=== PATIENT | female | born 1960 | race Caucasian/White ===

== ENCOUNTER 2024-01-20 06:01 | Day surgery (SDC) | payer OTHER, SELFPAY ==
[2024-01-11 12:07] VITALS: BMI 35.4
[2024-01-20] VITALS (12 sets, daily range): BP systolic 110–161; BP diastolic 57–114; PULSE 85–111; RESP 10–20; TEMP 36.1–36.9; O2SAT 97–99; BMI 35.4; BMI 36.7
--- NOTE | 2024-01-20 06:00 | DI.RAD.S_ITS ---
PROCEDURE: XR HIP W PEL IF DONE LT 2V INDICATIONS: DERREK TECHNIQUE: 2 view(s) of the left hip acquired. COMPARISON: None. FINDINGS: Bones: Intraoperative images of left hip arthroplasty, with hardware components in expected positions. The hip joint appears congruent. The visualized bony structures appear intact. Soft tissues: Overlying postoperative changes are noted. No suspicious soft tissue densities. IMPRESSION: Expected intraoperative appearance of a left hip arthroplasty. Dictated by: Keeley Álvarez MD, PhD on 01/20/2024 at 12:32 Approved by: Keeley Álvarez MD, PhD on 01/20/2024 at 12:33
[2024-01-20] MEDS: ACETAMINOPHEN 325 MG TABLET 975 MG PO (06:42)
[2024-01-20] MEDS: CELECOXIB 200 MG CAPSULE 400 MG PO (06:43)
[2024-01-20] MEDS: LACTATED RINGERS 1,000 ML 42 ML IV (06:45)
--- NOTE | 2024-01-20 07:34 | PM.PREOP ---
Pre-operative Note Interval Note History & Physical reviewed/Exam performed by Physician: Yes Changes to H&P: No
[2024-01-20] MEDS: CEFAZOLIN 2 GM/100 ML PREMIX 100 ML IV (08:00)
[2024-01-20] MEDS: TRANEXAMIC ACID 1,000 MG VIAL 2000 MG INJ ×2 (08:00→09:29)
--- NOTE | 2024-01-20 08:31 | SUR.OPER ---
Supine on padded [place] table with bilateral legs secured in padded positioning boots and suspended in positioning spars, operative leg in traction per surgeon. Head on one pillow. Arm on non-operative side secured on padded armboard <90 degrees abduction. Arm on operative side padded and resting across chest then secured with tape over sheet. Padded perineal post in place per surgeon.
[2024-01-20] MEDS: ROPIVACAINE/EPI/CLONIDINE/KET 50 ML SYRINGE INJ (08:43)
[2024-01-20] MEDS: TOBRAMYCIN 1.2 GM VIAL INTRA-ARTI (09:11)
[2024-01-20] MEDS: CEFAZOLIN VIAL 1 GM in SODIUM CHLORIDE 0.9% 100 ML IV (09:12)
--- NOTE | 2024-01-20 10:20 | DI.RAD.S_ITS ---
PROCEDURE: XR HIP W PEL IF DONE LT 2V INDICATIONS: LEFT HIP ANTERIOR TOTAL TECHNIQUE: AP pelvis and lateral view of the hip acquired. COMPARISON: [facility], [facility], XR HIP W PEL IF DONE LT 2V, 01/20/2024, 8:40. FINDINGS: Bones: Patient is status post left hip arthroplasty, with hardware components in expected positions. The hip joint appears congruent. The visualized bony structures appear intact. Soft tissues: Overlying postoperative changes are noted. No suspicious soft tissue densities. IMPRESSION: Expected post-operative appearance of a hip arthroplasty. Dictated by: Aiden Otero M.D. on 01/20/2024 at 16:17 Approved by: Aiden Otero M.D. on 01/20/2024 at 16:17
--- NOTE | 2024-01-20 10:27 | PM.OP.1 ---
Operative Date/Time/Diagnoses Date of procedure: 01/20/24 Pre-op diagnosis: Left hip osteoarthritis Post-op diagnosis: same Procedure & Clinicians Procedure: Left total hip arthroplasty Same procedure as scheduled: Yes Surgeon: Luis Paz Caster Operator: Yokasta Barnett Anesthesia Type: Spinal, Sedation and Local Operative Notes Estimated Blood Loss (mL): 250 Procedure in detail: Left Uncemented Direct Anterior Depuy Total Hip Arthroplasty Placement of biodegradable antibiotic delivery device in the left hip Implants: [place] Gription size 54 cup?with a 40 mm screw Actis femoral stem size 4 HO? 36 mm +5 ceramic femoral head? Procedure Summary: This 63-year-old female patient had a history of a contralateral total hip arthroplasty which was complicated by wound infection. Prior to proceeding with this surgery I checked inflammatory markers to ensure there was no persistent infection and they were normal. I utilized dissolvable calcium sulfate pellets for placement of depot antibiotics locally adjacent to the implants. This was loaded with cefazolin and gentamicin given the patient's vancomycin allergy. I also utilized an incisional wound VAC and will have the patient on prophylactic cefadroxil postoperatively after discharge. Intraoperatively I initially placed the cup with no screws but it loosened during manipulation for liner insertion so I did place a single screw for reinforcement before impacting down the liner. She received a size 4 stem. I had templated her for a size 5 however she had a very narrow femoral canal and achieved a anterior to posterior fit significantly earlier than a medial to lateral fit given the triple taper design of the implant that I used. I therefore implanted those final components once stability was achieved Procedure in Detail: This patient was seen preoperatively and evaluated for hip pain which was refractory to numerous nonoperative treatment modalities. Their hip pain correlated with radiographic changes demonstrating significant degeneration in the hip joint. The risks and benefits of continued nonoperative management versus operative management were discussed at length and all of the patient?s questions were answered. Additional educational materials providing further details beyond our discussion in clinic were provided via a publicly available patient education video which included the incidence of medical complications associated with total hip arthroplasty, reasons for revision following total hip arthroplasty, and patient satisfaction rates following total hip arthroplasty. That video can be accessed at [email or web address] . With this understanding of the risks inherent to the procedure, the patient elected to move forward with operative management. Following preoperative optimization, the patient was scheduled for surgery. The patient was met in the preoperative holding area the day of the procedure and all questions were answered. The patient?s nares were swabbed with betadine in order to decolonize them from MRSA. Informed consent was signed and the left limb was marked with indelible ink.? The patient was brought back to the operating room where anesthesia was induced. The patient was transferred to the [place] table and all bony prominences were padded. The operative site was prepped and draped in the usual sterile fashion. Prior to incision, tranexamic acid and cefazolin were administered. Operative templating images were displayed demonstrating the anticipated implant sizes and correct operative extremity. A timeout procedure was performed verifying the patient?s identity, medical comorbidities, allergies, relevant medications, anesthesia type and the surgical plan. All present were in agreement. The assistance of a physician academic affairs assistant was required for positioning, room setup, soft tissue retraction and wound closure. Without this assistance, the procedure would have been significantly more challenging and time consuming.?? A direct anterior approach to the hip was utilized. This was performed with a longitudinal incision through a Heuter interval. The incision was planned 2 cm distal and 2 cm lateral to the ASIS extending towards the lateral patella, in line with the muscle body of the TFL. Following incision, the subcutaneous tissue was dissected while taking care to avoid injury to the lateral femoral cutaneous nerve. The fascia overlying the TFL was identified by dissecting off the overlying fat and identifying perforating vessels to the TFL. The TFL fascia was incised and dissected away from the medial border of the TFL. A cobra retractor was placed over the superior femoral neck between the abductors and the hip capsule and used to reflect the TFL laterally. A Elliott self-retainer was then placed in the distal aspect of the wound between the TFL and the rectus femoris. This was tensioned to open up the direct anterior interval and the lateral circumflex vessels were identified and coagulated using electrocautery. The floor of the TFL fascia was incised, exposing the pericapsular fat overlying the hip capsule. A second cobra retractor was placed on the inferior femoral neck. A double-bent soft tissue retractor was placed on the anterior wall of the acetabulum and used to tension the reflected head of rectus femoris, which was then released in order to limit soft tissue tension. A capsulotomy was made in the midline of the anterior hip capsule in line with the femoral neck ending at the vastus tubercle. The double-bent retractor was removed in order to limit the amount of time that a soft tissue retractor remained on the anterior wall and protect the femoral nerve. Tag stitches were placed in the superior and inferior leaflets of the hip capsule. An Patel soft tissue retractor was introduced over the tag stitches and tensioned in the interval between the rectus femoris and the TFL in order to retract and protect those muscles. The cobra retractors were replaced intracapsularly, with one over the superior neck in the pocket created by the base of the greater trochanter and the other on the femoral head. The capsulotomy was extended laterally to the base of the greater trochanter and medially to the lesser trochanter. This required externally rotating the hip. Once the lesser trochanter had been identified, a neck cut was planned according to measurements from preoperative templating. A ruler was cut at the length measured between the superior aspect of the lesser trochanter and the collar of the prosthesis. This line was extended towards the inferior aspect of the lateral cobra retractor to plan a cut which would leave minimal residual femoral neck laterally. The neck was cut at 60 degrees of external rotation along that line. A second cut was performed to remove a large napkin ring and facilitate head extraction. The napkin ring cut and femoral head were removed.?? A broad anterior wall retractor was placed between the labrum and the anterior capsule so that the anterior capsule would prevent capturing and pinching the femoral nerve anteriorly. An additional retractor was placed on the posterior wall. External rotation and traction were applied through the [place] table so that the cut surface of the femoral neck would not restrict access to the acetabulum. The labrum was excised sharply and the pulvinar was excised with electrocautery to limit bleeding from branches of the obturator artery. Acetabular reamers were selected based on preoperative templating and measurements of the excised femoral head. These were introduced into the acetabulum. Fluoroscopy was utilized to replicate a standing AP pelvis radiograph by centering over the pelvis, rotating until there was appropriate symmetry between the obturator foramen, and introducing caudal tilt to match the position of the pubic symphysis relative to the sacrococcygeal junction according to the patient?s anatomy. Fluoroscopy was utilized to ensure appropriate reaming depth. Once satisfied with the reaming depth corresponding to the preoperative template and the pinch fit between the columns, an appropriate sized acetabular cup was selected which would provide 1 mm of press-fit. This cup was introduced and manipulated until appropriate abduction and anteversion angles were obtained with careful attention to appropriate abduction and anteversion angles as evaluated by the position of the cup relative to the anterior and posterior doe of the acetabulum and the AP fluoroscopy which recreated the patient?s standing radiograph. The cup was impacted into place. One screw was placed. Peripheral osteophytes were removed. The acetabular liner was then placed with care to ensure locking of the locking mechanism.? Attention was then turned to the femur. All retractors were removed, traction was released, a retractor was placed in the interval between the hip capsule and the gluteus minimus, and the hip was externally rotated to 90 degrees. Traction was applied through the [place] table to tension the lateral capsule and this was released using electrocautery. Traction was released and a [place] hook was placed posteriorly around the proximal femur at the level of the vastus ridge. The table height was lowered in order to restrict the tension on the anterior structures during hip hyperextension to limit the risk of femoral nerve palsy. With traction off and the hip at 90 degrees of external rotation, the hip was hyperextended and adducted while manually elevating the femur away from the acetabulum with the [place] hook to ensure it would not be caught behind the greater trochanter. An asymmetric retractor was placed over the calcar and a broad double-pronged retractor was placed over the greater trochanter. The tag stitch capturing the lateral leaflet of the capsule was moved to the medial side, leaving the conjoined and piriformis tendons isolated in the face of the greater trochanter. The hip was externally rotated and elevated. A release of the conjoined tendon was necessary in order to obtain adequate exposure for broaching. The canal was opened with an opening broach and a rasp was used to remove cancellous bone. A rongeur was used to remove the residual lateral bone at the base of the greater trochanter to avoid placing the stem in varus. The femur was then broached to the appropriate sized stem yielding good rotational fit and fill of the canal as well as appropriate version of the stem trial. Neck and head trials were placed, all retractors were removed and the hip was returned to neutral abduction and extension. I then reduced the hip. Initial trialing was performed with a size 4 broach, a high offset neck and a +1.5 head. I initially manually externally rotated the hip and found that it dislocated. I therefore upsized to a +5 head which resolved the instability. I then locked the hip in 45 degrees of external rotation and dropped it to the floor with traction off which demonstrated no instability. An AP pelvis fluoroscopic image matching the preoperative standing radiograph with both lesser trochanters visible and both hips in 40 degrees of external rotation demonstrated that leg length and offset were appropriate. AP and lateral hip fluoroscopic images were obtained to evaluate the broach size which demonstrated that it was slightly undersized on the AP radiograph but had achieved a robust canal fill on the lateral radiograph. The hip was dislocated and I returned to the broaching position. Based on my evaluation during initial trialing I planned to place these definitive implants. The definitive stem was placed and the trunnion was cleaned and dried. I placed a ceramic head onto the trunnion and impacted it into place on the Gupta taper.?? All retractors were removed and the hip was reduced. A dilute mixture of betadine and peroxide was used to bathe the soft tissues during final fluoroscopic assessment. Appropriate component positioning was confirmed on an AP pelvis radiograph with the operative and nonoperative legs in 40 degrees of external rotation, evaluating leg length and offset. Appropriate stem fill was evaluated on AP and lateral hip radiographs. No fractures were identified on these radiographs. There was no hip instability with maximum (110?) external rotation as well as a 45 degree drop test. The hip was copiously irrigated with pulse lavage. The capsule was closed with absorbable interrupted suture. The TFL fascia was closed with barbed suture while carefully protecting the lateral femoral cutaneous nerve from entrapment. A mixture of Ropivacaine, Epinephrine, Clonidine and Toradol was infiltrated throughout the soft tissues. The skin was closed with 2-0 and 3-0 sutures. Surgical glue was applied and a soft dressing was placed.??The sponge, instrument and needle counts were reported as being correct at the end of the case.??No obvious complications occurred. The patient was transferred from the [place] table back to a stretcher. The patient emerged from anesthesia without difficulty and was taken to the PACU in a stable condition.? Plan for aftercare: Anterior hip precautions Weightbearing as tolerated 500 mg twice per day cefadroxil for periprosthetic joint infection prophylaxis given her history on the contralateral side Netta incisional wound VAC was placed and will remain in place until follow up Aspirin 81 twice per day for DVT prophylaxis Anticipate discharge home today Change into normal clothes upon arrival on the hospital floor Mobilize in the halls as much as is logistically possible. If physical therapy is unavailable for mobilization, then patient should mobilize with nursing staff Multimodal pain regimen with no IV opioids ordered Apply ice machine to operative hip. Ensure that sufficient ice is in the chamber for the pad to remain cold Follow up at [facility] in 2 weeks Detailed postoperative instructions available at [email or web address]
[2024-01-20] MEDS: ACETAMINOPHEN 325 MG TABLET 650 MG PO (11:31)
[2024-01-20] MEDS: IBUPROFEN 600 MG TABLET PO (11:32)
[2024-01-20] MEDS: LACTATED RINGERS 1,000 ML 100 ML IV (11:33)
--- NOTE | 2024-01-20 15:30 | PT.IIE ---
Current Diagnoses Unilateral primary osteoarthritis, left hip (01/20/24) Surgery Performed Operation Date: 01/20/24 07:45 Actual Procedures p Total Hip Arthroplasty/Anterior Approach(Left) - Luis Paz MD Surgical History (Last Updated 01/11/24 @ 13:34 by Richelle Lewis, JONATHON) History of carpal tunnel release of both wrists History of reconstruction of right breast History of right mastectomy History of total right hip arthroplasty (01/07/15) Medical History (Last Reviewed 01/20/24 @ 06:38 by Leatha Elias, JONATHON) Arthritis BMI 35.0-35.9,adult (12/22/23) Breast cancer, right Depression Endometriosis HLD (hyperlipidemia) HTN (hypertension) Physical Therapy Inpatient Evaluation/Re-Eval M1 PT/OT-IP Prior Functional Status Start: 01/20/24 17:56 Freq: NEEDED Status: Active Protocol: Document 01/20/24 15:30 AB (Rec: 01/20/24 18:07 AB [id number]) Medical Review Prior Functional Status Medical History Reviewed Yes Communication able to make needs known Mobility and Gait pt stated that she was modified independent with all mobilities and ambulation using 1 crutch for mobility Social History Household Members spouse,children Living Arrangements House Number of Floors (Floors) 3 or More Floors Number of Stairs To Enter/Railing? pt will stay on main level of the house has 7 steps L rail ascending to etner the house Home Environment High Toilet,Tub/Shower Home Equipment Crutches,Shower Seat with Backrest,Hand Held Shower,Grab Bars Near Toilet,Grab Bars In Shower Additional Social History Comment pt plans to sleep on her recliner pt has a standard walker M2 PT-IP Current Condition Start: 01/20/24 17:56 Freq: NEEDED Status: Active Protocol: Document 01/20/24 15:30 AB (Rec: 01/20/24 18:07 AB [id number]) Physical Therapy Current Condition Current Condition Evaluation Date 01/20/24 Treatment Diagnosis s/p L DERREK anterior; difficulty in walking Onset Date 01/20/24 M3 PT-IP Subjective Start: 01/20/24 17:56 Freq: NEEDED Status: Active Protocol: Document 01/20/24 15:30 AB (Rec: 01/20/24 18:07 AB [id number]) Subjective Physical Therapy Visit Type Type Initial Evaluation Visit Start Time 15:30 Visit Stop Time 16:35 Number of [employer] Visits 0 Physical Therapy Visit Comments Patient Comments agreeable to do PT Therapy Pain Assessment Pain When Pain Assessed At Rest Pain Present Pain Present Pain Reported Location left hip Intensity 3 Scale Used Numeric (0 - 10) Pain Management Techniques Apply Cold,Distraction, Elevation,Modification of Treatment,Re-positioning, Timing of Activity with Medications M4 PT-IP Mobility and Gait Start: 01/20/24 17:56 Freq: NEEDED Status: Active Protocol: Document 01/20/24 15:30 AB (Rec: 01/20/24 18:07 [id number]) PT-Bed Mobility Assessment Supine to Sit Supine to Sit Minimal Assistance PT-Transfer Assessment Sit to and From Stand Sit to and from Stand Standby Assistance,Contact Guard Assistance,1 Person Assistance,Use of Upper Extremities Equipment Transfer Assistive Device Gait Belt,Standard Walker Orthotic/Prosthetic Devices or Brace: No Transfers Transfer Destination Chair Transfer Technique ambulated Transfer Ability Level of Assist Standby Assistance,Contact Guard Assistance,1 Person Assistance,Use of Upper Extremities Comments Mobility Comments pt supine in bed and agreeable to do PT. obtained PLOF and home set up from pt. post-op folder provided and reviewed contents. educated pt on L hip anterior precautions. pt completed bed mobility supine to sit min A and max cues. pt stated that she plans to sleep on her recliner at home. pt able to sit on EOB SBA. no c/o dizziness. BP: 154/73 completed sit to stand CGA and ambulated in room ~ 20 ft using std walker CGA. pt sat back on chair. pt rested. agreed to do stairs. pt completed sit to stand from chair SBA and ambulated in the hallway ~ 125 ft SBA using std walker. stair climbing training holding on to L rail with B hands SBA to CGA. pt repeated x2 sets. assisted pt back to the room. pt ambulated from w/c to chair using std walker SBA. positioned pt on the chair. call light and table placed within reach. Gait Assessment Gait Gait Assistance Required: Standby Assistance,Contact Guard Assist Distance (Feet) 125 Able to Maintain Weight Bearing Status Yes During Gait Assistive Devices Assistive Device Gait Belt,Standard Walker Orthotic/Prosthetic Devices or Brace: No Gait Deviations General Gait Pattern Antalgic,Decreased Feet Clearance Factors Limiting Gait Function Factors Limiting Gait Function Decreased Activity Tolerance, Decreased Strength,Limited Range of Motion,Pain,Poor Balance Stair Climbing Assessment Evaluation Level of Assist On Stairs Standby Assistance,Contact Guard Assistance Devices Stair Climbing Assistive Devices Left Railing Technique/Endurance Stair Climbing Direction Ascend and Descend Stair Climbing Technique Step to Step Number of Steps Climbed 3 Query Text: Stair Climbing Set # Repetitions (reps) 2 PT-Balance Assessment Sitting Balance and Reactions Static Sitting Balance Ability Normal Dynamic Sitting Balance Ability Good Standing Balance and Reactions Static Standing Balance Ability Good Dynamic Standing Balance Ability Fair Device Used std walker M5 PT-IP Objective Assessments Start: 01/20/24 17:56 Freq: NEEDED Status: Active Protocol: Document 01/20/24 15:30 AB (Rec: 01/20/24 18:07 [id number]) Orientation Orientation/Cognition Level of Alertness Alert Orientation Name,Place,Situation Language Function Ability No Deficits Noted Safety Awareness Understands Safety Issues Memory Description No Deficits Noted Gross Range of Motion Lower Extremity ROM Assessment Within Functional Limits Strength Lower Extremity Strength Assessment Left Impaired Hip 3+/5 Knee 4-/5 Coordination Assessment Gross Coordination Gross Coordination WNL Sensation Assessment Sensation Gross Sensation WNL Muscle Tone Muscle Tone WNL Yes M6 PT-IP Treatment Start: 01/20/24 17:56 Freq: NEEDED Status: Active Protocol: Document 01/20/24 15:30 AB (Rec: 01/20/24 18:07 [id number]) Physical Therapy Treatment Education Education Provided Precautions,Weight Bearing Status,Post-Op Packet,Safety M7 PT-IP Assessment and Plan Start: 01/20/24 17:56 Freq: NEEDED Status: Active Protocol: Document 01/20/24 15:30 AB (Rec: 01/20/24 18:07 [id number]) PT Summary Assessment and Plan Potential Rehabilitation Potential Good Status of Condition at Evaluation Stable Summary Impairments Pain,ROM,Strength,Balance, Coordination,Sensation,Tone, Cognition,Bed Mobility, Transfers,Gait,Activity Tolerance Assessment Summary pt is a 63 y/o F s/p L DERREK anterior approach POD 0. pt has L anterior precautions and is WBAT. pt requiring SBA to CGA with transfers and ambulation using std walker and plans to have her spouse to assist her. pt may go home when medically stable. Goals Bed Mobility Goal Independent Transfer Goal Independent,Front Wheeled Walker Gait Goal Independent,Front Wheel Walker Gait Distance 300 Other Goals up/down 7 steps L rail ascending mod I Days to Meet Goals 5 Frequency of Treatment Frequency Of Treatment Twice a Day Treatment Plan Physical Therapy Treatment Plan Bed Mobility Training,Transfer Training,Gait Training, Therapeutic Exercise,Balance Retraining,Post Op Education, Discharge Planning,Hot or Cold Pack,Neuromuscular Re-ed, Coordination Retraining,Manual Therapy Precautions Anterior Hip Precautions No Hip Extension,No Hip External Rotation Weight Bearing Status Weight Bearing Status Weight Bear as Tolerated Allowed Weight Bearing Amount (enter % LLE WBAT or #) (%) Recommendations To Nursing Amount of Assist Needed 1 Person Assist Discharge Recommendations PT Discharge Recommendations Home with Assistance, Outpatient PT Transportation Needs at Discharge Private Vehicle
--- NOTE | 2024-01-20 15:40 | PM.PN.1 ---
Subjective Subjective Interval history: Patient seen postoperatively. Resting comfortably in bed. Reports minimal pain. PT arrived during my visit to begin her session. She has ambulated to and from the bedside commode and is eager to go home today. She has intact femoral and sciatic nerve function and a good seal on her sundar. Plan for outpatient cefadroxil for PJI prophylaxis - otherwise standard postoperative course Exam Vital Signs (past 8 hours): - 01/20/24 10:03 01/20/24 10:11 01/20/24 10:13 Temperature 98.5 F Pulse Rate 90 111 H 108 H Respiratory Rate 20 10 L 11 L Blood Pressure 110/57 L 132/73 130/90 Pulse Oximetry 97 97 97 Oxygen Delivery Method Room Air Room Air Room Air Oxygen Flow Rate 01/20/24 10:20 01/20/24 10:25 01/20/24 10:30 Temperature Pulse Rate 102 H 98 H 92 H Respiratory Rate 17 18 12 Blood Pressure 147/114 H 114/61 129/70 Pulse Oximetry 97 98 97 Oxygen Delivery Method Room Air Room Air Room Air Oxygen Flow Rate 01/20/24 11:05 01/20/24 11:35 01/20/24 12:05 Temperature 97.0 F L 97.1 F L 97.1 F L Pulse Rate 85 89 85 Respiratory Rate 14 14 14 Blood Pressure 123/70 137/57 L 131/62 Pulse Oximetry 99 97 97 Oxygen Delivery Method Oxygen Flow Rate 0 0 0 01/20/24 13:05 01/20/24 14:05 Temperature 97.4 F L 97.6 F Pulse Rate 94 H 88 Respiratory Rate 15 15 Blood Pressure 126/65 130/75 Pulse Oximetry 98 97 Oxygen Delivery Method Oxygen Flow Rate 0 0 Oxygen Delivery Method Room Air Oxygen Flow Rate 0 PFSH Medical History Endometriosis BMI 35.0-35.9,adult (12/22/23) Arthritis HLD (hyperlipidemia) HTN (hypertension) Depression Breast cancer, right Surgical History (Updated 01/11/24 @ 13:34 by Richelle Lewis RN) History of carpal tunnel release of both wrists History of reconstruction of right breast History of right mastectomy History of total right hip arthroplasty (01/07/15) Social History household members: spouse Smoking Status: Current every day smoker alcohol intake: former Assessment & Plan Time-Based Coding :: [TOTAL MINUTES] spent with patient and on the chart (including review of chart, obtaining history, exam, reviewing outside data, placing orders, documenting exam and treatment plan, and counseling patient) on [DATE]. Quality VTE Deep Vein Thrombosis/Pulmonary Embolism Present on Admission: No
== END 2024-01-20 17:07 | disposition home or self-care (01) ==
LOC: OR 10:01 → AC 10:35
PROVIDERS: Family Provider Nurse Practitioner Family; PCP Internal Medicine; Referring Provider Orthopaedic Surgery Adult Reconstructive Orthopaedic Surgery; Visit Provider Orthopaedic Surgery Adult Reconstructive Orthopaedic Surgery
PROC: (CPT 27130; principal; 2024-01-20 07:45)
DX: M16.12 Unilateral primary osteoarthritis, left hip (principal); M25.752 Osteophyte, left hip
CPT/HCPCS: 27130; 73502; 76000; 97116; 97161; 97530; C1776; J0690; J1100; J2250; J3010